=== PATIENT | male | born 1970 | race Caucasian/White ===

== ENCOUNTER → 2021-09-27 | Outpatient (CLI) | payer MEDICARE, OTHER | END | disposition home or self-care (01) | LOC: LAB SHORT 07:41 → LAB 07:41 | DX: B35.1 Tinea unguium (principal) | CPT/HCPCS: 88305; 88312 ==

== ENCOUNTER → 2021-12-24 | Outpatient (CLI) | payer MEDICARE, OTHER ==
[2021-12-27 09:12] LABS: E001-IGE CAT DANDER <0.10 kU/L (Class 0); E005-IGE DOG DANDER <0.10 kU/L (Class 0); G006-IGE TIMOTHY GRASS <0.10 kU/L (Class 0); IMMUNOGLOBULIN E, TOTAL 344 IU/mL (6-495); M002-IGE CLADOSPORIUM HERBARUM <0.10 kU/L (Class 0); M006-IGE ALTERNARIA ALTERNATA <0.10 kU/L (Class 0); T001-IGE MAPLE/BOX ELDER <0.10 kU/L (Class 0); T003-IGE COMMON SILVER BIRCH <0.10 kU/L (Class 0); T007-IGE OAK, WHITE <0.10 kU/L (Class 0); T010-IGE WALNUT <0.10 kU/L (Class 0)
[2021-12-27 15:08] LABS: M001-IGE PENICILLIUM CHRYSOGEN 24.6 ug/mL (0.0-1.9)
== END ==
LOC: LAB SHORT 11:00 → LAB 11:00
PROVIDERS: Nurse Practitioner
DX: Z76.89 Persons encountering health services in other specified circumstances (principal)
CPT/HCPCS: 86001; 86003

== ENCOUNTER 2023-01-21 11:11 | Inpatient (IN) | payer MEDICARE, OTHER ==
[~2023-01-21] VITALS: Ht 170.2 cm; Wt 67.8 kg
[2023-01-21] VITALS (22 sets, daily range): BP systolic 79–116; BP diastolic 55–73
[2023-01-21 11:35] LABS: Calcium, Ionized (POC) 1.08 mmol/L (1.10-1.46); Chloride (POC) 89 mmol/L (98-108); Creatinine (POC) 1.2 mg/dL (0.8-1.3); Glucose (ISTAT POC) 521 mg/dL (70-99); Hemoglobin (POC) 7.1 g/dL (13.5-17.5); Potassium (POC) 3.9 mmol/L (3.5-5.5); Sodium (POC) 120 mmol/L (135-148); Total CO2 (POC) 7 mmol/L (21-32)
[2023-01-21 11:35] LABS: Source, Urine Foley catheter
[2023-01-21 11:36] LABS: Base Excess Venous -27.1 mmol/L; Bicarbonate Venous 6.6 mmol/L (24.0-30.0); PCO2 Venous 27.4 mmHg (38-42); pH Blood Venous 6.92 (7.34-7.37)
[2023-01-21 11:42] LABS: BASOPHILS ABSOLUTE AUTO 0.03 K/mm3 (0.00-0.23); BASOPHILS PERCENT AUTO 0 % (0-2); EOSINOPHILS ABSOLUTE AUTO 0.01 K/mm3 (0.00-0.68); EOSINOPHILS PERCENT AUTO 0 % (0-6); Hematocrit 27.9 % (37.0-53.0); Hemoglobin 10.4 g/dL (13.5-17.5); IMMATURE GRAN ABSOLUTE AUTO 0.32 K/mm3 (0.00-0.10); IMMATURE GRAN PERCENT AUTO 2 % (0-1); LYMPHOCYTES PERCENT AUTO 5 % (21-46); MONOCYTES ABSOLUTE AUTO 2.06 K/mm3 (0.16-1.47); MONOCYTES PERCENT AUTO 11 % (4-13); Mean Corpuscular HGB Conc 37.3 g/dL (31.5-36.5); Mean Corpuscular Volume 86 fL (80-100); Mean Platelet Volume 10.2 fL (9.1-12.4); NEUTROPHILS ABSOLUTE AUTO 16.01 K/mm3 (1.96-9.15); NEUTROPHILS PERCENT AUTO 83 % (41-73); Platelet Count 384 K/mm3 (150-400); RDW Coefficient Variation 12.3 % (11.7-14.2); RDW Standard Deviation 38.3 fL (35.1-46.3); Red Blood Cell Count 3.25 M/mm3 (4.30-5.90); White Blood Cell Count 19.33 K/mm3 (4.00-11.30)
[2023-01-21 11:44] LABS: Appearance, Urine Clear (Clear); Bilirubin, Urine Neg (Neg); Blood, Urine Neg (Neg); Color, Urine Yellow (P-Yellow); Glucose Qualitative, Urine 4+ (Neg); Ketones, Urine 3+ (Neg); Leukocyte Esterase, Urine Neg (Neg); Nitrite, Urine Neg (Neg); Protein, Urine Neg (Neg); Urobilinogen, Urine NORM (Normal)
[2023-01-21 12:10] LABS: Magnesium, Blood 3.5 mg/dL (1.6-2.4)
[2023-01-21] MEDS ORDERED: VENLAFAXINE ER 150MG (12:12)
[2023-01-21] MEDS ORDERED: MIRT30 PO (12:14)
[2023-01-21] MEDS ORDERED: EUTHYROX88 MC1 PO (12:14)
[2023-01-21] MEDS ORDERED: ATOR10 PO (12:14)
[2023-01-21] MEDS ORDERED: METFORMIN HCL500 M3 PO (12:14)
[2023-01-21] MEDS ORDERED: PANTOPRAZOLE SO40 M2 PO (12:14)
[2023-01-21] MEDS ORDERED: HUMALOG KW200 UNIT/2 SC (12:15)
[2023-01-21 12:32] LABS: Alanine Aminotransfer (ALT/SGP 14 U/L (12-78); Albumin, Blood 2.7 g/dL (3.4-5.0); Albumin/Globulin Ratio 0.8 (0.8-1.8); Alk Phos 101 U/L (50-136); Anion Gap 33 mmol/L (6-16); Aspartate Aminotrans (AST/SGOT 19 U/L (12-37); Beta-hydroxybutyrate 122.1 mg/dL (0.2-2.8); Bilirubin, Direct <0.1 mg/dL (0.0-0.3); Bilirubin, Indirect Unable to Calculate mg/dL (0.1-0.7); Bilirubin, Total 0.7 mg/dL (0.1-1.0); Blood Urea Nitrogen 107 mg/dL (8-24); Bun/Creatinine Ratio 65.2 (12.0-20.0); CO2, Blood 7 mmol/L (21-32); Calcium, Blood 7.6 mg/dL (8.5-10.1); Chloride, Blood 81 mmol/L (98-108); Creatinine, Blood 1.64 mg/dL (0.60-1.20); Globulin, Blood 3.4 g/dL (2.2-4.0); Glomerular Filtration Rate 51 (60-); Glucose, Blood 704 mg/dL (70-99); Potassium, Blood 4.1 mmol/L (3.5-5.5); Sodium, Blood 121 mmol/L (136-145); Total Protein, Blood 6.1 g/dL (6.4-8.2)
[2023-01-21 15:47] LABS: Calcium, Blood 7.6 mg/dL (8.5-10.1); Creatinine, Blood 1.2 mg/dL (0.60-1.20)
[2023-01-21 16:55] LABS: Hematocrit 23.2 % (37.0-53.0)
--- NOTE | 2023-01-21 18:25 | NUR ---
SHIFT SUMMARY PT ARRIVED TO ICU VIA JOR[facility] DIANA TO ICU BED BY SLIDER SHEET. UPON ARRIVAL PT ALERT TO PERSON BUT VERY SLOW TO RESPOND, UNSURE OF WHY HE IS HERE, UNABLE TO GIVE A DETAILED HISTORY. PT DOES RECALL BEING SICK AND THINKING HE HAD FOOD POISONING. PT MORE ALERT NOW BUT REMAINS VERY SLOW TO RESPOND, DOES RECALL EARLIER INTERACTIONS WITH THIS NURSE. PT HYPOTENSIVE c MAP >65, HAVE NOT NEEDED PRESSORS THUS FAR. SINUS TACH ON THE SANDWICH ARTIST. TEMPERATURE VIA MENA CATH OF 92 UPON ARRIVAL, BEAR HUGGER PLACED ON PT, CORE TEMP NOW 95 AND INCREASING. O2 SATS >95% ON RA. Q1HR CBG'S, INSULIN GTT CURRENTLY @ 2.5U/HR. PT ON 2/3 BAGS OF LR @ 250ML/HR.
[2023-01-21 19:13] LABS: Hematocrit 23.9 % (37.0-53.0)
[2023-01-21 19:27] LABS: Bun/Creatinine Ratio 89.6 (12.0-20.0); Calcium, Blood 7.9 mg/dL (8.5-10.1); Creatinine, Blood 0.99 mg/dL (0.60-1.20); Potassium, Blood 3.3 mmol/L (3.5-5.5)
[2023-01-21 19:32] LABS: Percent Saturation 24.5 % (20.0-50.0)
--- NOTE | 2023-01-21 22:23 | NUR ---
ASSUMED CARE: Assumed care at 1900. Pt is on insulin drip at 2.5 units/hr and LR at 250ml/hr. Pt is oriented x4. Asking repeatedly for water, I reminded him of NPO status. Bed alarm on. Pt does smoke. He is not on oxygen. Pt educated on no smoking/ no ignition policy and risks of ignition with oxygen in use. Pt verbalizes understanding and agrees to comply with policy.
[2023-01-21 23:37] LABS: Bun/Creatinine Ratio 87.4 (12.0-20.0); Calcium, Blood 7.2 mg/dL (8.5-10.1); Creatinine, Blood 0.8 mg/dL (0.60-1.20); Magnesium, Blood 2.2 mg/dL (1.6-2.4); Phosphorus, Blood 1.9 mg/dL (2.5-4.9); Potassium, Blood 3.3 mmol/L (3.5-5.5)
[2023-01-22] VITALS (29 sets, daily range): BP systolic 96–172; BP diastolic 52–98
[2023-01-22 03:35] LABS: Bun/Creatinine Ratio 74.9 (12.0-20.0); Calcium, Blood 7.1 mg/dL (8.5-10.1); Creatinine, Blood 0.69 mg/dL (0.60-1.20); Phosphorus, Blood 1.9 mg/dL (2.5-4.9); Potassium, Blood 3.2 mmol/L (3.5-5.5)
--- NOTE | 2023-01-22 05:52 | NUR ---
SHIFT SUMMARY: Insulin drip ranged between 2.5-3.5 units/hr overnight. Now running at 3units/hr. CBGs ranging between 190-220s for most of the night. Anion gap now closed. MAPs at start of shift were lower, now mostly in the 70s-80s. Still sinus tachycardia in the 110-120 range. Pt slept all night, but wakes easily to voice, is cooperative and oriented x4. Good urine output. Kphos and Kcl orders received from Dr. Riggs for electrolyte replacement. Still trending chem panels q4.
--- NOTE | 2023-01-22 08:00 | NUR ---
INITIAL ASSESSMENT PATIENT ALERT AND ORIENTED X 4, AFEBRILE. PATIENT DENIES PAIN. PATIENT WEAK BUT ABLE TO MOVE ALL EXTREMITIES. PATIENT SATTING 90% AND GREATER ON RA. PATIENT IN ST, HR IN THE 1-TEENS. SBP IN THE 1-TEENS. PATIENT NPO. PATIENT DENIES NAUSEA. MENA DRAINING YELLOW COLORED URINE. D5W 1/2 NS INFUSING AT 250 MLS/ HOUR. INSULIN DRIP AT 2.5 UNITS/ HOUR. SKIN APPEARS C/D/I. PATIENT RECEIVED POTASSIUM AND PHOS REPLACEMENTS THIS AM. BED LOW, CALL LIGHT IN REACH. WILL CONTINUE TO MONITOR PATIENT FREQUENTLY THROUGHOUT SHIFT.
[2023-01-22 08:12] LABS: Magnesium, Blood 1.9 mg/dL (1.6-2.4)
[2023-01-22 08:14] LABS: Bun/Creatinine Ratio 65.8 (12.0-20.0); Calcium, Blood 7.1 mg/dL (8.5-10.1); Creatinine, Blood 0.53 mg/dL (0.60-1.20); Phosphorus, Blood 1.2 mg/dL (2.5-4.9); Potassium, Blood 3.3 mmol/L (3.5-5.5)
[2023-01-22] MEDS ORDERED: Januvia50 MG PO (09:21)
[2023-01-22] MEDS ORDERED: VENL150ER PO (09:22)
[2023-01-22] MEDS ORDERED: INSULANI SC (09:39)
--- NOTE | 2023-01-22 10:00 | NUR ---
SPOKE WITH PATIENT ABOUT IGNITION RISK OF SMOKING IN HOSPITAL ROOMS WITH O2. PATIENT STATES HE DOES NOT HAVE CRM MARKETING MANAGER OR CIGARETTES AND WILL NOT LIGHT UP IN ROOM.
[2023-01-22 12:13] LABS: Bun/Creatinine Ratio 51.4 (12.0-20.0); Calcium, Blood 7.2 mg/dL (8.5-10.1); Creatinine, Blood 0.51 mg/dL (0.60-1.20); Magnesium, Blood 1.9 mg/dL (1.6-2.4)
[2023-01-22 12:18] LABS: BASOPHILS PERCENT AUTO 0 % (0-2); EOSINOPHILS PERCENT AUTO 0 % (0-6); IMMATURE GRAN ABSOLUTE AUTO 0.03 K/mm3 (0.00-0.10); IMMATURE GRAN PERCENT AUTO 1 % (0-1); LYMPHOCYTES ABSOLUTE AUTO 0.52 K/mm3 (0.84-5.20); LYMPHOCYTES PERCENT AUTO 8 % (21-46); MONOCYTES ABSOLUTE AUTO 0.66 K/mm3 (0.16-1.47); MONOCYTES PERCENT AUTO 10 % (4-13); Mean Platelet Volume 9.5 fL (9.1-12.4); NEUTROPHILS ABSOLUTE AUTO 5.17 K/mm3 (1.96-9.15); NEUTROPHILS PERCENT AUTO 81 % (41-73); Platelet Count 161 K/mm3 (150-400); RDW Coefficient Variation 12.3 % (11.7-14.2); Red Blood Cell Count 2.06 M/mm3 (4.30-5.90); White Blood Cell Count 6.38 K/mm3 (4.00-11.30)
--- NOTE | 2023-01-22 12:22 | NUR ---
DR. WOODS UPDATED ON PATIENT'S MOST RECENT PHOS AND POTASSIUM LEVELS. PHOS AND POTASSIUM LABS WILL BE COLLECTED AN HOUR AFTER KPHOS IS DONE INFUSING.
[2023-01-22 12:26] LABS: Mean Corpuscular Volume 81 fL (80-100)
[2023-01-22 12:33] LABS: Hematocrit 16.6 % (37.0-53.0)
--- NOTE | 2023-01-22 12:41 | NUR ---
PATIENT AFEBRILE. HR 1-TEENS TO 120S. SBP IN THE LOW 100S. PATIENT GIVEN LONG ACTING THIS AM. INSULIN DRIP STOPPED 1 HOUR AFTER LONG ACTING GIVEN. FLUIDS CHANGED TO LR AT 100 MLS/ HOUR WHEN PATIENT EATING LUNCH. PATIENT TOLERATED LUNCH WELL; ATE ABOUT 50%. MENA CATHETER REMOVED. PATIENT HAS NO COMPLAINTS AT THIS TIME. NO OTHER ACUTE CHANGES TO NOTE ON AT THIS TIME. WILL CONTINUE TO MONITOR.
--- NOTE | 2023-01-22 16:40 | NUR ---
PATIENT AFEBRILE. HR IN THE 1-TEENS. SBP 130S TO 140S. NO OTHER ACUTE CHANGES TO NOTE ON AT THIS TIME. NO COMPLAINTS. WILL CONTINUE TO MONITOR.
--- NOTE | 2023-01-22 18:12 | NUR ---
SHIFT SUMMARY PATIENT REMAINED ALERT AND ORIENTED X 4, AFEBRILE. PATIENT IS DIFFICULT TO WAKE AT TIMES WHEN SLEEPING SOUNDLY. PATIENT HAD NO COMPLAINTS OF PAIN DURING SHIFT. PATIENT REMAINED SATTING 90% AND GREATER ON RA. PATIENT REMAINED IN ST, HR 1-TEENS TO 120S. SBP LOW 100S TO 150S. NO NAUSEA THIS SHIFT. PATIENT TRANSITIONED FROM INSULIN DRIP TO LONG ACTING AND SLIDING SCALE INSULIN. PATIENT PLACED ON ADA/ SOFT DIET (SOFT BECAUSE HAS LIMITED TEETH). BLOOD SUGARS RANGED FROM 171 TO 282. NO BM THIS SHIFT. 2425 MLS OF URINE OUT THIS SHIFT. TRINA REMOVED THIS SHIFT. NO CHANGES TO SKIN NOTED. PATIENT HAD TO BE REMINDED TO TURN SELF IN BED. LR INFUSING AT 100 MLS/ HOUR. PATIENT RECEIVED 40 MEQ KCL AND TOTAL OF 50 MM KPHOS REPLACEMENTS TODAY. HEMATOCRIT LEVEL OF 16.6. PATIENT RECEIVED 1 UNIT OF PRBCS. MED REC COMPLETED THIS SHIFT. CT PERFORMED OF ABDOMEN AND PELVIS. BED LOW, CALL LIGHT IN REACH. REPORT WILL BE GIVEN TO ONCOMING PRIMARY PRODUCTS INSPECTORS NURSE SHORTLY.
[2023-01-22 20:12] LABS: Hematocrit 21.8 % (37.0-53.0)
[2023-01-22 20:35] LABS: Phosphorus, Blood 1.5 mg/dL (2.5-4.9); Potassium, Blood 3.7 mmol/L (3.5-5.5)
--- NOTE | 2023-01-22 20:35 | NUR ---
ASSUMPTION OF CARE/ASSESSMENT: ASSUMED CARE OF PT AT 1900. PT FINISHING UP DINNER AND LAYING IN BED. PT A&O X 4, WEAK BUT ABLE TO HELP WITH REPOSITIONING AND USING THE URINAL. PT GETS TIRED AFTER THESE TASKS. PT ON RA WITH SPO2 99< AND RR 18-20. ST ON MONITOR WITH HR 110-130'S AND SBP 140-150'S; PT DECLINES SOB OR CHEST PAIN AT THIS TIME. HYPERACTIVE BOWEL SOUNDS IN ALL QUADRANTS, PT TOLERATING PO INTAKE BUT APPETITE IS STILL LOW. PT USING URINAL WITH SBA FOR VOIDING, HAS HAD NO BOWEL MOVEMENT. PPP X 4, SKIN INTACT AND WARM. LR INFUSING AT 100 MLS/HR. BED LOWERED CALL LIGHT IN REACH, WILL CONTINUE TO MONITOR.
[2023-01-22 20:54] LABS: U Amphetamine Screen Not Detected; U Barbituate Screen Not Detected; U Benzodiazapine Screen Not Detected; U Buprenorphine Screen Not Detected; U Cannabinoids Screen Not Detected; U Cocaine Screen Not Detected; U Methadone Screen Not Detected; U Methamphetamine Screen Not Detected; U Opiates Screen DETECTED; U Oxycodone Screen Not Detected; U Phencyclidine Screen Not Detected; U Propoxyphene Screen Not Detected
[2023-01-22 20:59] LABS: Bun/Creatinine Ratio 33.7 (12.0-20.0); Calcium, Blood 7.9 mg/dL (8.5-10.1); Creatinine, Blood 0.5 mg/dL (0.60-1.20); Potassium, Blood 3.7 mmol/L (3.5-5.5)
[2023-01-23] VITALS (16 sets, daily range): BP systolic 90–141; BP diastolic 52–82
[2023-01-23 05:36] LABS: Bun/Creatinine Ratio 19.3 (12.0-20.0); Calcium, Blood 7.8 mg/dL (8.5-10.1); Creatinine, Blood 0.52 mg/dL (0.60-1.20); Potassium, Blood 3.6 mmol/L (3.5-5.5)
--- NOTE | 2023-01-23 05:37 | NUR ---
SHIFT SUMMARY: NO ACUTE CHANGES OVERNIGHT; VSS THROUGHOUT THE SHIFT. PT WAS ABLE TO SLEEP FOR MAJORITY OF THE NIGHT. UP TO USING URINAL AT BEDSIDE WITH SBA; TOTAL URINE OUTPUT AROUND 2200 MLS. PT REPOSITIONING IN BED INDEPENDENTLY. AFEBRILE FOR THE ENTIRE SHIFT. PT CURRENTLY HAS LR INFUSING AT 100 MLS/HR. BED LOWERED, CALL LIGHT IN REACH, WILL CONTINUE TO MONITOR UNTIL ONCOMING RN ARRIVES.
[2023-01-23 06:53] LABS: BASOPHILS PERCENT AUTO 0 % (0-2); EOSINOPHILS ABSOLUTE AUTO 0.01 K/mm3 (0.00-0.68); EOSINOPHILS PERCENT AUTO 0 % (0-6); Hematocrit 19.6 % (37.0-53.0); IMMATURE GRAN ABSOLUTE AUTO 0.03 K/mm3 (0.00-0.10); IMMATURE GRAN PERCENT AUTO 1 % (0-1); LYMPHOCYTES ABSOLUTE AUTO 0.84 K/mm3 (0.84-5.20); LYMPHOCYTES PERCENT AUTO 15 % (21-46); MONOCYTES ABSOLUTE AUTO 0.56 K/mm3 (0.16-1.47); MONOCYTES PERCENT AUTO 10 % (4-13); Mean Corpuscular Volume 85 fL (80-100); Mean Platelet Volume 9.9 fL (9.1-12.4); NEUTROPHILS ABSOLUTE AUTO 4.23 K/mm3 (1.96-9.15); NEUTROPHILS PERCENT AUTO 75 % (41-73); Platelet Count 148 K/mm3 (150-400); RDW Coefficient Variation 12.8 % (11.7-14.2); RDW Standard Deviation 39.2 fL (35.1-46.3); Red Blood Cell Count 2.31 M/mm3 (4.30-5.90); White Blood Cell Count 5.67 K/mm3 (4.00-11.30)
--- NOTE | 2023-01-23 08:20 | NUR ---
Assumed care of pt at 0700. Report received from Suzan LOPEZ. Pt A&O x 4. Answers questions, follows commands, verbalizes needs. Pleasant and cooperative with care. SpO2 90% or greater with room air. ST per monitor. Patient educated regarding ignition sources and risk of injury while oxygen is in use. Pt denies having ingition sources and verbalizes understanding.
[2023-01-23 15:37] LABS: Hematocrit 19.2 % (37.0-53.0)
--- NOTE | 2023-01-23 18:27 | NUR ---
SUMMARY Pt is medical floor status w/o telemetry. A&O x 4. Answers questions, follows commands, verbalizes needs. Pleasant and cooperative with care. Worked with PT/OT today. Transfers out of bed with one person assist. SpO2 90% or greater RA. No acute changes to initial assessment.
--- NOTE | 2023-01-23 20:53 | NUR ---
ASSUMPTION OF CARE/ASSESSMENT: ASSUMED CARE OF PT AT 1900. PT A&O X 4, FOLLOWING COMMANDS AND COOPERATIVE WITH CARE. PT AMBULATING WITH FWW AND 1-PERSON ASSIST. GAIT AND OVERALL STRENGHT NOTED TO BE IMPROVING SINCE LAST SHIFT; GAIT STEADY AND EVEN. PT UP TO SHOWER THIS EVEN AND AMBULATING TO SHOWER ROOM WELL. COMPLETE LINEN CHANGE DONE ON BED. PT CURRENTLY ON RA WITH SPO2 99<, RR 18 AND LUNG SOUND CLEAR WITH DIM BASES. SBP 140'S, HR 100'S, AND NO C/O CHEST PAIN AT THIS TIME. HYPERACTIVE BOWEL SOUNDS IN ALL QUADRANTS; ABD SOFT, NON-TENDER. PT HAS NOT HAD BOWEL MOVEMENT SINCE ADMISSION. PT USING URINAL AT BEDSIDE WITH ONE PERSON ASSIST FOR VOIDS; URINE IS CLEAR, YELLOW. PT INDEPENDENT WITH BED MOBILITY. PG TO TRUDY THAT IS SALINE LOCKED. BED LOWERED, CALL LIGHT IN REACH, WILL CONTINUE TO MONITOR.
--- NOTE | 2023-01-23 21:08 | NUR ---
FIRE SAFETY CHECK: PT EDUCATED REGARDING IGNITION SOURCES AND RISK OF INJURY WHEN OXYGEN IS IN USE. PT DENIES HAVING ANY IGNITION SOURCES IN HIS POSSESSION AND VERBALIZES UNDERSTANDING REGARDING FIRE SAFETY.
[2023-01-24] VITALS (7 sets, daily range): BP systolic 109–140; BP diastolic 72–92
--- NOTE | 2023-01-24 01:25 | NUR ---
PT TRANSFER TO MED 358: REPORT GIVEN TO PRITI LOPEZ ON MEDICAL FLOOR TO ASSUME CARE OF PT. PT BELONGINGS, MEDS AND CHART PACKED UP WITH HIM; PT BEING TRANSFERRED VIA WHEELCHAIR BY PCT. PT LEFT UNIT AT 0130. CALL WILL BE PLACED TO FAMILY IN THE MORNING UPDATING THEM OF TRANSFER.
--- NOTE | 2023-01-24 06:02 | NUR ---
SHIFT SUMMARY PT TRANSFERRED FROM ICU. GALLOP NOTED ON CARDIAC AUSCULTATION. BILATERAL WHEEZING PRESENT. PT AAOX3 AND IS REFUSING SKIN ASSESSMENT UPON ARRIVAL DUE TO BEING TIRED AND WANTING TO SLEEP. PT DENIES ANY SKIN CONCERNS OTHER THAN ABRASION IN R AC DUE TO [place]BAN. NO BM OVERNIGHT SO UNABLE TO COLLECT GUIAC SAMPLE.
[2023-01-24 06:47] LABS: Albumin, Blood 2.1 g/dL (3.4-5.0); Albumin/Globulin Ratio 0.7 (0.8-1.8); Bilirubin, Total 0.3 mg/dL (0.1-1.0); Bun/Creatinine Ratio 10.1 (12.0-20.0); Calcium, Blood 7.8 mg/dL (8.5-10.1); Creatinine, Blood 0.5 mg/dL (0.60-1.20); Potassium, Blood 2.6 mmol/L (3.5-5.5); Total Protein, Blood 5.1 g/dL (6.4-8.2)
[2023-01-24 08:51] LABS: CHOL/HDL RATIO 2.3; Cholesterol 82 mg/dL (50-200); HDL Cholesterol 36 mg/dL (>39); LDL/HDL RATIO 0.6; Low Density Lipoprotein Chol 23 mg/dL (0-110); Triglycerides 114 mg/dL (30-160); Very Low Density Lipoprot Chol 22 mg/dL (6-32)
[2023-01-24 09:18] LABS: BASOPHILS PERCENT AUTO 0 % (0-2); EOSINOPHILS PERCENT AUTO 0 % (0-6); IMMATURE GRAN PERCENT AUTO 1 % (0-1); LYMPHOCYTES PERCENT AUTO 16 % (21-46); MONOCYTES PERCENT AUTO 7 % (4-13); Mean Corpuscular HGB 32.4 pg (26.0-34.0); Mean Corpuscular Volume 88 fL (80-100); RDW Coefficient Variation 12.6 % (11.7-14.2); RDW Standard Deviation 39.8 fL (35.1-46.3)
[2023-01-24 09:23] LABS: Hematocrit 18.4 % (37.0-53.0); Hemoglobin 6.8 g/dL (13.5-17.5); Platelet Count 88 K/mm3 (150-400); White Blood Cell Count 6.56 K/mm3 (4.00-11.30)
[2023-01-24 09:25] LABS: EOSINOPHILS ABSOLUTE AUTO 0.02 K/mm3 (0.00-0.68); IMMATURE GRAN ABSOLUTE AUTO 0.06 K/mm3 (0.00-0.10); LYMPHOCYTES ABSOLUTE AUTO 1.12 K/mm3 (0.84-5.20); MONOCYTES ABSOLUTE AUTO 0.46 K/mm3 (0.16-1.47); NEUTROPHILS ABSOLUTE AUTO 4.96 K/mm3 (1.96-9.15); NEUTROPHILS PERCENT AUTO 76 % (41-73)
[2023-01-24 17:08] LABS: Phosphorus, Blood 1.4 mg/dL (2.5-4.9); Potassium, Blood 3.7 mmol/L (3.5-5.5)
--- NOTE | 2023-01-24 19:15 | NUR ---
SHIFT SUMMARY PT IS ALERT AND ORIENTED X4. NO COMPLAINTS OF CHEST PAIN OR SOB. GALLOP NOTED PREVIOUS NURSE REPORTED. PT IS CURRENTLY RECIEVING 1 UNIT OF BLOOD. INDEPENDENT SBA. WEAKNESS IN THE LOWER EXTREMETIES. NO BM TODAY. NO ACUTE CHANGES THIS SHIFT.
[2023-01-25 04:11] VITALS: BP 128/84
--- NOTE | 2023-01-25 05:27 | NUR ---
SHIFT SUMMARY PT HAS RESTED MOST OF THE NIGHT. PT WAS RECEIVING ONE UNIT OF BLOOD WHEN I ARRIVED ON SHIFT. PT TOLERATED THE REMAINDER OF THE INFUSION. VITALS HAVE BEEN STABLE. PT STILL HAS NOT BEEN ABLE TO HAVE A BM. TOLERATING PO INTAKE, AND DENIES N/V. RESP E/U ON RA, PT DENIES SOB. KENNY THIS AM, MEDICATED WITH TYLENOL PER EMAR. NO ACUTE CHANGES OVERNIGHT. BED IN LOWEST POSITION, CALL LIGHT WITHIN REACH.
[2023-01-25 07:12] VITALS: BP 123/81
[2023-01-25 08:57] LABS: BASOPHILS ABSOLUTE AUTO 0.02 K/mm3 (0.00-0.23); BASOPHILS PERCENT AUTO 0 % (0-2); EOSINOPHILS ABSOLUTE AUTO 0.11 K/mm3 (0.00-0.68); EOSINOPHILS PERCENT AUTO 1 % (0-6); Hematocrit 29.5 % (37.0-53.0); Hemoglobin 10.7 g/dL (13.5-17.5); IMMATURE GRAN ABSOLUTE AUTO 0.11 K/mm3 (0.00-0.10); IMMATURE GRAN PERCENT AUTO 1 % (0-1); LYMPHOCYTES ABSOLUTE AUTO 1.53 K/mm3 (0.84-5.20); LYMPHOCYTES PERCENT AUTO 19 % (21-46); MONOCYTES PERCENT AUTO 11 % (4-13); Mean Corpuscular HGB 32.3 pg (26.0-34.0); Mean Corpuscular HGB Conc 36.3 g/dL (31.5-36.5); Mean Corpuscular Volume 89 fL (80-100); Mean Platelet Volume 9.5 fL (9.1-12.4); NEUTROPHILS ABSOLUTE AUTO 5.26 K/mm3 (1.96-9.15); NEUTROPHILS PERCENT AUTO 66 % (41-73); NRBC ABSOLUTE 0.02 K/mm3 (0.00-0.02); NRBC Auto 0.3 /100 WBC (0.0-0.2); Platelet Count 223 K/mm3 (150-400); RDW Coefficient Variation 12.8 % (11.7-14.2); RDW Standard Deviation 41.4 fL (35.1-46.3); Red Blood Cell Count 3.31 M/mm3 (4.30-5.90); White Blood Cell Count 7.93 K/mm3 (4.00-11.30)
[2023-01-25 09:08] LABS: Bun/Creatinine Ratio 7.8 (12.0-20.0); Calcium, Blood 8.6 mg/dL (8.5-10.1); Creatinine, Blood 0.51 mg/dL (0.60-1.20); Potassium, Blood 3.4 mmol/L (3.5-5.5)
[2023-01-25 09:58] VITALS: BP 99/67
[2023-01-25 15:35] VITALS: BP 112/79
[2023-01-25 19:07] VITALS: BP 122/80
--- NOTE | 2023-01-25 19:12 | NUR ---
DAY SHIFT SUMMARY PT A/XO4. NO ACUTE EVENTS. HGB STABLE. NO BOWEL MOVEMENT. PT HAVING SOFT BLOOD PRESSURES WHEN WORKING WITH PT. VITALS REVIEWED AND STABLE. PT ABLE TO MAKE NEEDS KNOWN. PLEASANT AND COOPERATIVE.
[2023-01-26 02:33] VITALS: BP 129/88
[2023-01-26 05:03] LABS: BASOPHILS ABSOLUTE AUTO 0.01 K/mm3 (0.00-0.23); BASOPHILS PERCENT AUTO 0 % (0-2); EOSINOPHILS ABSOLUTE AUTO 0.16 K/mm3 (0.00-0.68); EOSINOPHILS PERCENT AUTO 3 % (0-6); Hematocrit 26.5 % (37.0-53.0); Hemoglobin 9.4 g/dL (13.5-17.5); IMMATURE GRAN ABSOLUTE AUTO 0.11 K/mm3 (0.00-0.10); IMMATURE GRAN PERCENT AUTO 2 % (0-1); LYMPHOCYTES ABSOLUTE AUTO 1.45 K/mm3 (0.84-5.20); LYMPHOCYTES PERCENT AUTO 26 % (21-46); MONOCYTES ABSOLUTE AUTO 0.76 K/mm3 (0.16-1.47); MONOCYTES PERCENT AUTO 14 % (4-13); Mean Corpuscular HGB 32.4 pg (26.0-34.0); Mean Corpuscular HGB Conc 35.5 g/dL (31.5-36.5); Mean Corpuscular Volume 91 fL (80-100); Mean Platelet Volume 9.4 fL (9.1-12.4); NEUTROPHILS ABSOLUTE AUTO 3.05 K/mm3 (1.96-9.15); NEUTROPHILS PERCENT AUTO 55 % (41-73); NRBC ABSOLUTE 0.02 K/mm3 (0.00-0.02); NRBC Auto 0.4 /100 WBC (0.0-0.2); Platelet Count 239 K/mm3 (150-400); RDW Coefficient Variation 12.9 % (11.7-14.2); RDW Standard Deviation 42.2 fL (35.1-46.3); White Blood Cell Count 5.54 K/mm3 (4.00-11.30)
--- NOTE | 2023-01-26 05:04 | NUR ---
SHIFT SUMMARY NO ACUTE CHANGES NOTED DURING SHIFT. PT ALERT AND ORIENTED, CALLS APPROPRIATELY. PT REMAINS ON RA, INDEPENDENT IN ROOM. PT PENDING GUIAC STOOL SAMPLE, PRN MIRILAX ADMINISTERED, NO BM AT THIS TIME. WILL CONTINUE TO MONITOR. CALL LIGHT WITHIN REACH.
[2023-01-26 05:21] LABS: Bun/Creatinine Ratio 15.1 (12.0-20.0); Calcium, Blood 8.2 mg/dL (8.5-10.1); Creatinine, Blood 0.53 mg/dL (0.60-1.20); Potassium, Blood 3.8 mmol/L (3.5-5.5)
[2023-01-26 07:24] VITALS: BP 121/88
[2023-01-26 11:58] LABS: Stool Occult Blood Guaiac 1 Pos (Neg)
[2023-01-26 19:12] VITALS: BP 124/83
--- NOTE | 2023-01-26 19:48 | NUR ---
SHIFT SUMMARY PT ALERT AND ORIENTED X4. INDEPENDENT. POSITIVE GUAC. NO ACUTE CHANGES.
[2023-01-27] VITALS (17 sets, daily range): BP systolic 78–148; BP diastolic 45–90
--- NOTE | 2023-01-27 04:38 | NUR ---
SHIFT SUMMARY PT A&OX4, AND COOPERATIVE WITH CARE. NO ACUTE CHANGES, VSS. PT RESTED MAJORITY OF SHIFT. INDEPENDENT IN ROOM/BATHROOM. CALLS APPROPRIATELY, CALL LIGHT WITHIN REACH.
[2023-01-27 09:48] LABS: BASOPHILS ABSOLUTE AUTO 0.01 K/mm3 (0.00-0.23); BASOPHILS PERCENT AUTO 0 % (0-2); EOSINOPHILS ABSOLUTE AUTO 0.16 K/mm3 (0.00-0.68); EOSINOPHILS PERCENT AUTO 3 % (0-6); Hemoglobin 10.3 g/dL (13.5-17.5); IMMATURE GRAN PERCENT AUTO 2 % (0-1); LYMPHOCYTES ABSOLUTE AUTO 1.11 K/mm3 (0.84-5.20); LYMPHOCYTES PERCENT AUTO 19 % (21-46); MONOCYTES ABSOLUTE AUTO 0.85 K/mm3 (0.16-1.47); MONOCYTES PERCENT AUTO 14 % (4-13); Mean Corpuscular HGB Conc 34.3 g/dL (31.5-36.5); Mean Corpuscular Volume 93 fL (80-100); Mean Platelet Volume 9.4 fL (9.1-12.4); NEUTROPHILS ABSOLUTE AUTO 3.69 K/mm3 (1.96-9.15); NEUTROPHILS PERCENT AUTO 62 % (41-73); Platelet Count 358 K/mm3 (150-400); RDW Coefficient Variation 13.2 % (11.7-14.2); RDW Standard Deviation 43.9 fL (35.1-46.3); Red Blood Cell Count 3.22 M/mm3 (4.30-5.90); White Blood Cell Count 5.92 K/mm3 (4.00-11.30)
--- NOTE | 2023-01-27 11:34 | NUR ---
PATIENT IS CURRENT EVERDAY SMOKER. EDUCATED ABOUT HOSPITAL USE OF OXYGEN, FLAMMABILITY OF OXYGEN, AND OXYGEN SAFETY. VERBALIZED UNDERSTANDING OF EDUCATION. DENIED HAVING ANY POTENTIALLY INCENDIARY DEVICE (BRAND MARKETING MANAGER, MATCHES) IN HIS POSSESION.
[2023-01-27 11:48] LABS: Bun/Creatinine Ratio 9.9 (12.0-20.0); Calcium, Blood 8.5 mg/dL (8.5-10.1); Creatinine, Blood 0.61 mg/dL (0.60-1.20); Potassium, Blood 4.4 mmol/L (3.5-5.5)
--- NOTE | 2023-01-27 16:13 | NUR ---
PATIENT OFF UNIT VIA GURNEY TO DAY SURGERY FOR EGD.
--- NOTE | 2023-01-27 16:31 | NUR ---
PT TO SDS BY ADALGISA. History, Chart, Medications and Allergies reviewed before start of procedure.Lungs WITH EXPIRATORY WHEEZE, DR NOTIFIED. WILL GIVE DUONEB. Patient confirms NPO status and agrees with scheduled surgery. Pre-Op teaching done. Pt verbalizes understanding.
--- NOTE | 2023-01-27 17:22 | NUR ---
SHIFT SUMMARY: NO ACUTE EVENTS. DENIED PAIN. HAD BM THIS MORNING, STATED THAT IT WAS STILL DARK IN COLOR. LUNGS CTAB, HAS NICOTINE PATCH ON L UPPER ARM. NO OXYGEN IN USE, STATES HE HAS NO DESIRE TO SMOKE AT THIS TIME. WORKED WITH PT/OT TODAY, AMBULATED IN HALLWAY. HAVING EGD AT TIME OF THIS NOTE.
--- NOTE | 2023-01-27 17:34 | NUR ---
01/27/23 [id number] Ivone Hernandez HISTORY, CHART, MEDICATIONS AND ALLERGIES REVIEWED BEFORE START OF PROCEDURE. PATIENT CONFIRMS NPO STATUS AND AGREES WITH SCHEDULED PROCEDURE. 3-LEAD EKG REVIEWED WITH PHYSICIAN PRIOR TO START OF PROCEDURE. MONITOR INTACT WITH CONTINUOUS PULSE OXIMETRY,CAPNOGRAPHY, 3-LEAD EKG, INTERMITTENT BP. SUPPLEMENTAL O2 TO BE TITRATED THROUGHOUT PROCEDURE TO MAINTAIN O2 SATURATION ABOVE 90%. PATIENT DETERMINED TO BE ASA APPROPRIATE FOR PROPOFOL SEDATION PRIOR TO START OF PROCEDURE BY DR. WINSTON
[2023-01-28 03:34] VITALS: BP 100/72
--- NOTE | 2023-01-28 03:50 | NUR ---
CUSTOMER SUPPORT SPECIALIST SUMMARY NO ACUTE EVENTS OVERNIGHT. A&OX4. PATIENT EFFECTIVELY COMMUNICATES NEEDS. VSS. RR EVEN AND UNLABORED ON RA. NO REPORTS OF PAIN OR OTHER SYMTPOMS. PER ORDERS, PATIENT IS TO BE ADVANCED TO A REGULAR ADA DIET THIS MORNING FOR BREAKFAST. BED LOW AND LOCKED. CALL LIGHT WITHIN REACH. THIS RN WILL CONTINUE TO MONITOR.
--- NOTE | 2023-01-28 05:06 | NUR ---
PATIENT EDUCATION PATIENT EDUCATED ON IGNITION SOURCES AND RISK OF INJURY WHILE OXYGEN IS IN USE. PATIENT DENIES HAVING POSSIBLE IGNITION SOURCES AND/OR TOBACCO PRODUCTS. PATIENT IS AGREEABLE WITH EDUCATION.
[2023-01-28 05:26] LABS: BASOPHILS ABSOLUTE AUTO 0.02 K/mm3 (0.00-0.23); BASOPHILS PERCENT AUTO 0 % (0-2); EOSINOPHILS ABSOLUTE AUTO 0.13 K/mm3 (0.00-0.68); EOSINOPHILS PERCENT AUTO 2 % (0-6); Hematocrit 29.6 % (37.0-53.0); Hemoglobin 10.1 g/dL (13.5-17.5); IMMATURE GRAN ABSOLUTE AUTO 0.12 K/mm3 (0.00-0.10); IMMATURE GRAN PERCENT AUTO 2 % (0-1); LYMPHOCYTES ABSOLUTE AUTO 1.67 K/mm3 (0.84-5.20); LYMPHOCYTES PERCENT AUTO 24 % (21-46); MONOCYTES ABSOLUTE AUTO 1.08 K/mm3 (0.16-1.47); MONOCYTES PERCENT AUTO 15 % (4-13); Mean Corpuscular HGB 31.9 pg (26.0-34.0); Mean Corpuscular HGB Conc 34.1 g/dL (31.5-36.5); Mean Corpuscular Volume 93 fL (80-100); Mean Platelet Volume 8.7 fL (9.1-12.4); NEUTROPHILS ABSOLUTE AUTO 4.04 K/mm3 (1.96-9.15); NEUTROPHILS PERCENT AUTO 57 % (41-73); Platelet Count 373 K/mm3 (150-400); RDW Coefficient Variation 13.4 % (11.7-14.2); RDW Standard Deviation 44.6 fL (35.1-46.3); Red Blood Cell Count 3.17 M/mm3 (4.30-5.90); White Blood Cell Count 7.06 K/mm3 (4.00-11.30)
[2023-01-28 06:07] LABS: Bun/Creatinine Ratio 6.7 (12.0-20.0); Creatinine, Blood 0.6 mg/dL (0.60-1.20); Potassium, Blood 3.7 mmol/L (3.5-5.5)
[2023-01-28 07:19] VITALS: BP 101/62
[2023-01-28] MEDS ORDERED: HUMULIN R100 UNIT/2 SC (11:42)
[2023-01-28] MEDS ORDERED: SUCRALFATE1 GM/1015 PO (11:43)
--- NOTE | 2023-01-28 12:51 | NUR ---
PATIENT DISCHARGED TO HOME, FRIEND DRIVING. POWERGLIDE IV REMOVED WITHOUT INCIDENT. VERBALIZED UNDERSTANDING OF D/C INSTRUCTIONS, GIVEN NEW PT PACKET FOR [employer], ADVISED TO FOLLOW UP. WAS GIVEN NOTE FOR EMPLOYER STATING HIS HOSPITALIZATION DATES. OFF UNIT AT 1250, AMBULATORY. NO PERSONAL BELONGINGS LEFT BEHIND IN ROOM.
--- NOTE | 2023-01-28 15:48 | NUR ---
OXYGEN SAFETY EDUCATION: PATIENT RE-EDUCATED ABOUT OXYGEN SAFETY WHILE IN HOSPITAL, SAME INFORMATION YESTERDAY. WHILE HE IS A CURRENT EVERYDAY SMOKER, HE DENIES HAVING ANY INCENDIARY DEVICES (LIGHTERS, MATCHES, ETC.) IN HIS POSSESSION AND HAS A NICOTINE PATCH ON. HE VERBALIZED UNDERSTANDING OF EDUCATION.
== END 2023-01-28 12:55 | disposition home or self-care (01) | DRG 637 ==
LOC: ER 11:11 → MEDS 13:24 → ICUE 13:24 → MEDS 01-24 01:29
PROVIDERS: Student in an Organized Health Care Education/Training Program; ADMIT Internal Medicine
PROC: 30233N1 Transfusion of Nonautologous Red Blood Cells into Peripheral Vein, Percutaneous Approach (ICD-10-PCS; principal; 2023-01-21)
PROC: 0T9B70Z Drainage of Bladder with Drainage Device, Via Natural or Artificial Opening (ICD-10-PCS; 2023-01-21)
PROC: 0DB68ZX Excision of Stomach, Via Natural or Artificial Opening Endoscopic, Diagnostic (ICD-10-PCS; 2023-01-27)
DX: E11.10 Type 2 diabetes mellitus with ketoacidosis without coma (principal); G93.41 Metabolic encephalopathy; K22.11 Ulcer of esophagus with bleeding; E87.1 Hypo-osmolality and hyponatremia; K92.1 Melena; N17.9 Acute kidney failure, unspecified; D62 Acute posthemorrhagic anemia; K44.9 Diaphragmatic hernia without obstruction or gangrene; D63.8 Anemia in other chronic diseases classified elsewhere; E83.51 Hypocalcemia; K21.9 Gastro-esophageal reflux disease without esophagitis; D72.829 Elevated white blood cell count, unspecified; E86.0 Dehydration; I48.91 Unspecified atrial fibrillation; E87.6 Hypokalemia; E83.39 Other disorders of phosphorus metabolism; F32.A Depression, unspecified; E78.5 Hyperlipidemia, unspecified; E03.9 Hypothyroidism, unspecified; F17.210 Nicotine dependence, cigarettes, uncomplicated; Z90.49 Acquired absence of other specified parts of digestive tract; Z79.4 Long term (current) use of insulin; Z79.890 Hormone replacement therapy; Z79.899 Other long term (current) drug therapy; Z79.1 Long term (current) use of non-steroidal anti-inflammatories (NSAID)
CPT/HCPCS: 36415; 36430; 51702; 70450; 71045; 74177; 80047; 80048; 80053; 80061; 80076; 81003; 82010; 82272; 82728; 82803; 82947; 83540; 83550; 83605; 83690; 83735; 84100; 84132; 84145; 85014; 85018; 85025; 85651; 86140; 86850; 86900; 86901; 86923; 87040; 88305; 88342; 93005; 93010; 94760; 96365-59; 96366-59; 96368; 96375-59; 97110; 97116; 97162; 97166; 97530; 97535; 99285-25; A9270; C1751; C9113; J0612; J1650; J1815; J1956; J2405; J2704; J3480; J7030; J7042; J7050; J7060; J7120; P9016; Q9967

== ENCOUNTER → 2023-02-03 | Outpatient (CLI) | payer MEDICARE, OTHER ==
[~2023-02-03] MED LIST: ATOR10 PO; EUTHYROX88 MC1 PO; HUMALOG KW200 UNIT/2 SC; HUMULIN R100 UNIT/2 SC; INSULANI SC; Januvia50 MG PO; METFORMIN HCL500 M3 PO; MIRT30 PO; PANTOPRAZOLE SO40 M2 PO; SUCRALFATE1 GM/1015 PO; VENL150ER PO; VENLAFAXINE ER 150MG
[2023-02-03 22:52] LABS: Bun/Creatinine Ratio 13.7 (12.0-20.0); Calcium, Blood 8.3 mg/dL (8.5-10.1); Creatinine, Blood 0.44 mg/dL (0.60-1.20); Potassium, Blood 3.6 mmol/L (3.5-5.5); Thyroid Stimulating Hormone 1.86 uIU/mL (0.360-4.800)
[2023-02-05 09:10] LABS: C-PEPTIDE, SERUM 2.1 ng/mL (1.1-4.4)
[2023-02-05 21:10] LABS: HEMOGLOBIN A1C 9.4 % (4.8-5.6)
== END | disposition home or self-care (01) ==
LOC: LAB 18:42 → LAB SHORT 18:42
PROVIDERS: Nurse Practitioner Family
DX: E11.42 Type 2 diabetes mellitus with diabetic polyneuropathy (principal); K22.11 Ulcer of esophagus with bleeding; Z76.89 Persons encountering health services in other specified circumstances
CPT/HCPCS: 80048; 84443

== ENCOUNTER → 2023-03-13 | Outpatient (CLI) | payer MEDICARE, OTHER ==
[2023-03-13 16:09] LABS: BASOPHILS ABSOLUTE AUTO 0.02 K/mm3 (0.00-0.23); BASOPHILS PERCENT AUTO 0 % (0-2); EOSINOPHILS ABSOLUTE AUTO 0.09 K/mm3 (0.00-0.68); EOSINOPHILS PERCENT AUTO 2 % (0-6); Hematocrit 36.4 % (37.0-53.0); Hemoglobin 11.9 g/dL (13.5-17.5); IMMATURE GRAN ABSOLUTE AUTO 0.01 K/mm3 (0.00-0.10); IMMATURE GRAN PERCENT AUTO 0 % (0-1); LYMPHOCYTES PERCENT AUTO 34 % (21-46); MONOCYTES ABSOLUTE AUTO 0.45 K/mm3 (0.16-1.47); MONOCYTES PERCENT AUTO 8 % (4-13); Mean Corpuscular HGB 27.7 pg (26.0-34.0); Mean Corpuscular HGB Conc 32.7 g/dL (31.5-36.5); Mean Corpuscular Volume 85 fL (80-100); Mean Platelet Volume 9.6 fL (9.1-12.4); NEUTROPHILS ABSOLUTE AUTO 3.13 K/mm3 (1.96-9.15); NEUTROPHILS PERCENT AUTO 56 % (41-73); Platelet Count 310 K/mm3 (150-400); RDW Coefficient Variation 12.6 % (11.7-14.2); RDW Standard Deviation 39.1 fL (35.1-46.3); Red Blood Cell Count 4.29 M/mm3 (4.30-5.90)
== END | disposition home or self-care (01) ==
LOC: LAB 15:17 → LAB SHORT 15:17
PROVIDERS: Nurse Practitioner Family
DX: E10.40 Type 1 diabetes mellitus with diabetic neuropathy, unspecified (principal); R71.8 Other abnormality of red blood cells
CPT/HCPCS: 82043; 85025